=== PATIENT | female | born 1995 | race American Indian/Alaskan Native ===

== ENCOUNTER 2023-07-05 16:35 | Emergency (ER) | payer OTHER, SELFPAY ==
--- NOTE | ~2023-07-05 | CT_ITS ---
EXAMINATION: CT ABDOMEN AND PELVIS WITH CONTRAST CLINICAL INFORMATION: Right lower quadrant pain. COMPARISON: None available. TECHNIQUE: Multidetector volumetric images were obtained from the superior aspect of the liver through the pubic symphysis following administration 85 mL of Omnipaque 350 intravenous contrast. Sagittal and coronal reformatted images were obtained on the technologist's workstation. Oral contrast: No This CT examination was performed using dose optimization techniques as appropriate, variously including the following: *Automated exposure control *Adjustment of mA and/or kV according to patient size (this includes techniques or standardized protocols for targeted exams where dose is matched to indication/reason for exam; i.e. extremities or head) *Use of iterative reconstruction technique DLP: 354 mGy-cm FINDINGS: LUNG BASES: The visualized lung bases are unremarkable. LIVER, GALLBLADDER, AND BILIARY TREE: The liver is normal in size, shape, and attenuation. No focal hepatic lesion or biliary ductal dilatation is present. The gallbladder is unremarkable with no evidence of radiopaque gallstones, gallbladder wall thickening, or obvious pericholecystic inflammatory changes. PANCREAS: Unremarkable. SPLEEN: Unremarkable. ADRENAL GLANDS: Unremarkable. KIDNEYS AND URETERS: The kidneys are normal in size, shape, and attenuation. No hydronephrosis, hydroureter, or calculi seen. No perinephric stranding. BLADDER: Unremarkable. GASTROINTESTINAL TRACT: Fluid-filled distended loops of small bowel in the lower abdomen with mild associated mesenteric vasculature engorgement. Ileocecal valve in a superior location (image 41, series 3). Retrocecal appendix measuring 0.4 cm in diameter. No significant inflammatory changes to indicate indirect evidence of acute appendicitis. No evidence of bowel obstruction. No significant pericolonic fat stranding or free fluid. ABDOMINAL WALL: No significant hernia is appreciated. LYMPH NODES: Scattered prominent mesenteric lymph nodes, largest in the right lower quadrant measuring up to 0.8 cm in short axis. VASCULAR: Unremarkable. PELVIC VISCERA: Retroflexed uterus. The right ovary is not entirely well delineated due to the presence of adjacent small bowel loops, however it does appears to be is slightly asymmetric compared to the left, most likely related with the presence of a 1.8 cm corpus luteal cyst in the right ovary best seen on coronal image 58 series 6. Small to moderate amount of free fluid in the cul-de-sac. OSSEOUS STRUCTURES: Unremarkable. CT/CT abdomen pelvis w IV con IMPRESSION: 1. Fluid-filled distended loops of small bowel in the lower abdomen with mild associated mesenteric vasculature engorgement and prominent mesenteric lymph nodes. These findings are nonspecific and could be associated with gastroenteritis in the appropriate clinical context. 2. The right ovary is not entirely well delineated due to the presence of adjacent small bowel loops, however it does appears to be slightly asymmetric compared to the left, most likely related with the presence of a corpus luteal cyst in the right ovary with a small to moderate amount of free fluid in the cul-de-sac. If an acute ovarian abnormality is clinically suspected, further evaluation with a pelvic ultrasound could be obtained.
--- NOTE | ~2023-07-05 | US_ITS ---
EXAMINATION: ABDOMINAL ULTRASOUND LIMITED CLINICAL INFORMATION: Right lower quadrant pain; question appendicitis. COMPARISON: None. TECHNIQUE: Imaging of the abdomen was performed with a high-frequency linear transducer using graded compression. FINDINGS: A low-attenuation tubular structure is seen within the right lower quadrant at the site of pain described by the patient. This contains central anechoic fluid. The patient described pain upon insonation of the structure, and it is uncertain whether this tubular structure is blind ending due to technical limitations related to limited patient tolerance for imaging secondary to significant pain. There is no associated central color Doppler flow to suggest that this represents a vascular structure. The diameter is 5-6 mm. There is no adjacent free fluid. The adjacent right ovary is unremarkable and shows normal vascular flow. US/US appendix IMPRESSION: Findings are suspicious for early acute appendicitis, with borderline thickening of the presumed vermiform appendix to 5-6 mm and endoluminal fluid. Recommend clinical correlation. This could be further evaluated with CT, if clinically indicated. This critical result was discussed with Trinidad Quarles at 6:30 PM on 07/05/2023, and it was ascertained that the content and urgency of this report was understood at the time of direct communication.
[2023-07-05 16:43] VITALS: BP 120/82; PULSE 81; RESP 18; TEMP 36.8; O2SAT 98; BMI 24.8
--- NOTE | 2023-07-05 16:43 | ED_ITS ---
HPI - General Adult General Chief complaint: Abdominal Pain Stated complaint: Abdominal pain right side Time Seen by Provider: 07/05/23 19:58 Source: patient, RN notes reviewed and old records reviewed Mode of arrival: ambulatory Limitations: no limitations History of Present Illness HPI narrative: 27-year-old female who denies any past medical history presents for evaluation of right lower quadrant abdominal pain. she reports that her symptoms started 2 days ago. she denies any nausea vomiting, diarrhea. Denies any urinary complaints vaginal bleeding or discharge patient was seen urgent care and was referred to the ED for further evaluation and to rule out acute appendicitis. Prior to evaluate the patient, I received a phone call from [facility] that the patient's ultrasound that was ordered from triage as is concerning for early appendicitis. Related Data Allergies Allergy/AdvReac Type Severity Reaction Status Date / Time diphenhydramine AdvReac Hives Verified 07/05/23 16:47 [From Benadryl] ibuprofen [From Motrin] AdvReac Nose Bleed Verified 07/05/23 16:47 Review of Systems 2 Constitutional: Constitutional: Denies chills, Denies fever(s) and Reports malaise Eyes: Eyes: Denies eye pain ENT: Denies sore throat Cardiovascular: Cardiovascular: Denies chest pain and Denies dyspnea Respiratory: Respiratory: Denies cough and Denies dyspnea Gastrointestinal: Gastrointestinal: Reports abdominal pain, Denies nausea and Denies vomiting Genitourinary: Genitourinary: Denies dysuria Musculoskeletal: Musculoskeletal: Denies back pain Integumentary/Breasts: Skin/Breast: Denies rash PMFSH Social History Social History Smoked in Last 30 Days: No Use of substances other than those prescribed or required for medical reasons: No Advance Directives: No Advance Directives Information Provided: Yes Physical Exam ED Vital Signs: Vital Signs - 24 hr 07/05/23 16:43 07/05/23 19:53 Temperature 98.2 F Pulse Rate 81 85 Respiratory Rate 18 16 Blood Pressure 120/82 118/75 Pulse Oximetry 98 99 Oxygen Delivery Method Room Air Room Air BMI result Body Mass Index 24.8 Const General: healthy appearing, comfortable, no acute distress, alert and awake Nutritional Appearance: well nourished Orientation/consciousness: patient oriented x3 HENMT Head: Yes normocephalic and Yes atraumatic Eyes Eyelids: Yes eyelids normal Conjunctivae: conjunctivae normal Sclerae: sclerae normal Corneas: corneas normal Pupils: Equal, round and reactive pupils present EOM: EOMs intact bilaterally Neck Neck: Yes full ROM Resp Effort & Inspection: normal respiratory effort, able to speak in complete sentences and not labored GI Other: Patient is tender in the right lower quadrant with guarding. There is no rebound tenderness, negative psoas signs obturator signs. Inspection: No distended Palpation (GI): Soft to palpation, not firm, Tenderness to palpation present (GI) in the RLQ, Guarding due to palpation present (GI) and not rigid Skin General skin exam: elasticity normal Neuro General: patient oriented x3 Cranial nerves: Yes Equal, round and reactive pupils present and Yes Bilaterally intact EOM present Cognition (Neuro): normal cognition Extrem Other: Moving all extremities well without any obvious deformities Course Course Course Narrative: This is a rapid medical exam: Additional HPI, ROS, PE not included below will be deferred to primary provider. Patient is a 27-year-old female presenting to the emergency department with complaint of right sided lower abdominal pain since . Reports mild nausea but denies vomiting or diarrhea. Possible change of . Denies fevers. Also complains of sore throat but states she was at urgent care prior to arrival, tested for Covid and strep and both were negative. Plan: labs, UA Reevaluation(s) Reevaluation #1: patient's CT scan shows a normal retrocecal appendix. The right ovary is not well visualized, however the patient's pain is very reproducible in the right lower quadrant of the abdomen, not in the pelvic region. ovarian torsion is less likely at this time. The patient does have a moderate amount of constipation on the right side noted on her CT scan. This may be the cause of her discomfort and she be discharged at this time. Time: 21:32 Medications Administered Discontinued Medications Generic Name Dose Route Start Last Admin Trade Name Freq PRN Reason Stop Dose Admin Sodium Chloride 1,000 mls @ 999 mls/hr 07/05/23 20:15 07/05/23 20:42 Ns IV 07/05/23 21:15 999 mls/hr .Q1H1M KARLOS Administration Iohexol 100 ml 07/05/23 20:39 07/05/23 20:39 Iohexol 350 Mg/Ml 100 Ml Infus..Btl IV 07/05/23 20:40 85 ml ONCE ONE Administration Ketorolac Tromethamine 15 mg 07/05/23 20:06 07/05/23 20:46 Ketorolac Tromethamine 15 Mg/Ml Vial IVPUSH 07/05/23 20:07 15 mg ONCE ONE Administration Ondansetron HCl 4 mg 07/05/23 20:06 07/05/23 20:46 Ondansetron Hcl 4 Mg/2 Ml Vial IVPUSH 07/05/23 20:07 4 mg ONCE ONE Administration Medical Decision Making Medical Decision Making [facility] Narrative: 27-year-old female presents for evaluation abdominal pain. Her pain is lateralize to the right lower quadrant. She denies any GI or symptoms. She is quite tender exam with guarding but no rebound tenderness. The labs are reassuring with no leukocytosis, however her ultrasound was suspicious for early appendicitis. Will follow this up with a CT scan of the abdomen pelvis to better evaluate. The patient is not , UA does not appear to show signs of UTI Differential Diagnosis Differential Diagnoses: The differential diagnosis associated with the presentation includes acute appendicitis Obstructive uropathy Ovarian cyst Ovarian torsion less likely Constipation Lab Data [facility] Lab Attestation statement: I reviewed the patient's lab results. no leukocytosis, mild anemia that is normocytic but low normal MCV. no significant electrolyte abnormalities 07/05/23 17:00 07/05/23 17:00 Labs: Lab Results 07/05/23 07/05/23 Range/Units 17:00 17:58 WBC 8.1 (4.8-10.8) X10*3/uL RBC 4.19 L (4.20-5.50) X10*6/uL Hgb 11.3 L (12.0-16.0) g/dl Hct 33.9 L (37.0-47.0) % MCV 80.9 (80.0-98.0) fL MCH 27.0 (27.0-33.0) pg MCHC 33.3 (31.0-35.0) g/dl RDW 14.9 (11.0-16.0) % Plt Count 322 (160-400) X10*3/uL MPV 9.6 (9.4-12.3) fL Immature Gran % (Auto) 0.1 (0.0-0.4) % Neut % (Auto) 64.4 (45-73) % Lymph % (Auto) 23.3 (20-40) % Overton % (Auto) 7.5 (2-11) % Eos % (Auto) 4.2 H (0-4) % Baso % (Auto) 0.5 (0-2) % Lymph # (Auto) 1.9 (1.2-4.9) X10*3/uL Overton # (Auto) 0.6 (0.1-1.2) X10*3/uL Eos # (Auto) 0.3 (0.0-0.4) X10*3/uL Baso # (Auto) 0.0 (0.0-0.2) X10*3/uL Abs Immat Gran (auto) 0.01 (0.00-0.03) X10*3/uL Absolute Neuts (auto) 5.2 (2.0-8.3) x10*3/uL Absolute Nucleated RBC 0.000 (0.0-0.012) X10*3/uL Nucleated RBC % (auto) 0.0 (0.0-0.2) /100WBC Sodium 137 (135-145) mmol/L Potassium 3.6 (3.3-5.1) mmol/L Chloride 104 (96-108) mmol/L Carbon Dioxide 22 (22-29) mmol/L Anion Gap 15 (12-20) BUN 6 L (9-16) mg/dL Creatinine 0.71 (0.5-1.4) mg/dL Estim Creat Clear Calc 107.6 Estimated GFR > 60 Random Glucose 96 (60-115) mg/dL Calcium 9.9 (8.4-10.2) mg/dL Total Bilirubin 0.3 (0.0-1.0) mg/dL AST 16 (5-31) U/L ALT 5 (0-31) U/L Alkaline Phosphatase 49 (39-117) U/L Total Protein 7.9 (6.5-8.0) g/dL Albumin 4.3 (3.5-5.0) g/dL Beta HCG, Quant < 2 mIU/mL Urine Color Yellow Urine Appearance Clear Urine pH 5.5 (5.0-9.0) Ur Specific Marble 1.015 (1.005-1.025) Urine Protein Negative (Neg-Trace) mg/dL Urine Glucose (UA) Negative (Negative) mg/dL Urine Ketones Negative (Negative) mg/dL Urine Blood Negative (Negative) Urine Nitrite Negative (Negative) Ur Leukocyte Esterase Negative (Negative) Independent Interpretation I performed an independent interpretation of an: CT Scan ( Moderate right-sided stool burden) Radiology Impression Discussion of test interpretation with radiology: I have reviewed the radiologist's reading. ( fluid-filled distended loops of small bowel in the lower abdomen with mild mesenteric vasculature and engorgement and prominent mesenteric lymph nodes. These findings are nonspecific and could be associated with gastroenteritis appropriate clinical setting) Discharge Plan Discharge Clinical Impression: Abdominal pain Patient Disposition: Home, Self-Care Instructions: Abdominal Pain (ED) Additional Instructions: your appendix is normal on the CT scan. Her pain is likely related to a stomach virus. You also have some right-sided stool/constipation you may use ibuprofen and/or Tylenol for pain you may use an [id number] stool softener if you feel you are not using the bathroom often return for new or worsening symptoms
[2023-07-05 17:06] LABS: MANUAL DIFF FLAG NO
[2023-07-05 17:07] LABS: Basophils Percent Auto 0.5 % (0-2); Eosinophils Absolute Auto 0.3 X10*3/uL (0.0-0.4); Eosinophils Percent Auto 4.2 % (0-4); Hematocrit 33.9 % (37.0-47.0); Hemoglobin 11.3 g/dl (12.0-16.0); Imm Gran Abs Auto 0.01 X10*3/uL (0.00-0.03); Imm Gran Pct Auto 0.1 % (0.0-0.4); Lymphocytes Absolute Auto 1.9 X10*3/uL (1.2-4.9); Lymphocytes Percent Auto 23.3 % (20-40); Mean Corpuscular HGB Conc 33.3 g/dl (31.0-35.0); Mean Corpuscular Volume 80.9 fL (80.0-98.0); Mean Platelet Volume 9.6 fL (9.4-12.3); Monocytes Absolute Auto 0.6 X10*3/uL (0.1-1.2); Monocytes Percent Auto 7.5 % (2-11); Neutrophils Absolute Auto 5.2 x10*3/uL (2.0-8.3); Neutrophils Percent Auto 64.4 % (45-73); Platelet Count 322 X10*3/uL (160-400); Red Blood Count 4.19 X10*6/uL (4.20-5.50); Red Cell Distribution Width 14.9 % (11.0-16.0); White Blood Count 8.1 X10*3/uL (4.8-10.8)
[2023-07-05 17:35] LABS: Alanine Aminotransferase 5 U/L (0-31); Albumin Level 4.3 g/dL (3.5-5.0); Alkaline Phosphatase 49 U/L (39-117); Anion Gap 15 (12-20); Aspartate Amino Transferase 16 U/L (5-31); Bilirubin Total 0.3 mg/dL (0.0-1.0); Blood Urea Nitrogen 6 mg/dL (9-16); Calcium 9.9 mg/dL (8.4-10.2); Carbon Dioxide 22 mmol/L (22-29); Chloride 104 mmol/L (96-108); Creatinine Clr Calc Pharmacy 107.6; Estimated Glomerular Filt Rate > 60; Glucose Random 96 mg/dL (60-115); HCG Quantitative < 2 mIU/mL; Potassium 3.6 mmol/L (3.3-5.1); Sodium 137 mmol/L (135-145); Total Protein 7.9 g/dL (6.5-8.0)
[2023-07-05 18:05] LABS: Appearance Urine Clear; Color Urine Yellow; Glucose Urine UA Negative (Negative); Leukocyte Esterase Urine Negative (Negative); Nitrite Urine Negative (Negative); PH 5.5 (5.0-9.0); Specific Gravity - Urine 1.015 (1.005-1.025); Urine Blood Negative (Negative); Urine Ketones Negative (Negative); Urine Protein Negative (Neg-Trace)
[2023-07-05 19:53] VITALS: BP 118/75; PULSE 85; RESP 16; O2SAT 99
--- NOTE | 2023-07-05 19:56 | PC.NURSE ---
aox4. calm, coop. reports abd pain down from 10/10 to 7/10. no respiratory distress. resting
[2023-07-05] MEDS: iohexoL 350 MG/ML 100 ML INFUS..BTL IV (20:39)
[2023-07-05] MEDS: 0.9 % Sodium Chloride 1,000 ML 999 ML IV (20:42)
[2023-07-05] MEDS: Ketorolac Tromethamine 15 MG/ML VIAL IVPUSH (20:46)
[2023-07-05] MEDS: ondansetron HCL 4 MG/2 ML VIAL IVPUSH (20:46)
[2023-07-05 21:36] VITALS: BP 115/74; PULSE 79; RESP 17; TEMP 36.9; O2SAT 100
== END 2023-07-05 22:13 | disposition home or self-care (01) ==
PROVIDERS: Registered Nurse Emergency; Emergency Provider Emergency Medicine
DX: R10.31 Right lower quadrant pain (principal)
CPT/HCPCS: 36415; 74177; 76705; 80053; 81003; 84702; 85025; 96361; 96374; 96375; 99284; 99285; J1885; J2405; Q9967